=== PATIENT | female | born 1935 | race Caucasian/White ===

== ENCOUNTER 2017-08-17 12:51 | Emergency (ER) | payer MEDICARE, OTHER ==
[2017-08-17 13:19] VITALS: BMI 28.9
[2017-08-17 13:22] VITALS: BP 147/87; PULSE 87; TEMP 98.4; O2SAT 98
--- NOTE | 2017-08-17 14:08 | C.PDOC ---
History Of Present Illness 81 year old female, whose PMHx includes thyroid disease, presents to the ED for evaluation of throat discomfort. Patient states she has been drinking fluids, but has minor discomfort when eating solids. Patient was evaluated by her PMD earlier this week and was prescribed Levaquin, with which she has been poorly compliant. Patient denies fever, chills, difficulty breathing, difficulty swallowing, or change in voice. PMD: Dr. Candace Heath Time Seen by Provider: 08/17/17 13:42 Chief Complaint (Nursing): Shortness Of Breath History Per: Patient History/Exam Limitations: no limitations Onset/Duration Of Symptoms: Days Current Symptoms Are (Timing): Still Present Current Respiratory Medications: See Home Med List Associated Symptoms: denies: Fever, Chills Additional History Per: Patient Past Medical History Reviewed: Historical Data, Nursing Documentation, Vital Signs Vital Signs: Last Vital Signs Temp 98.4 F 08/17/17 13:19 Pulse 87 08/17/17 13:19 Resp 20 08/17/17 14:16 BP 147/87 08/17/17 13:19 Pulse Ox 98 08/17/17 14:08 - Medical History PMH: CHF, Diabetes, HTN Surgical History: Cholecystectomy - [facility] Procedures LAPAROSCOPIC CHOLECYSTECTOMY (06/24/14) LAPAROSCOPIC ROBOTIC ASSISTED PROCEDURE (06/24/14) Family History: States: Unknown Family Hx - Social History Hx Tobacco Use: No Hx Alcohol Use: No Hx Substance Use: No - Immunization History Hx Tetanus Toxoid Vaccination: Yes Hx Influenza Vaccination: Yes Hx Pneumococcal Vaccination: Yes Review Of Systems Constitutional: Negative for: Fever, Chills ENT: Positive for: Other (throat discomfort ) Physical Exam - Physical Exam Appears: Non-toxic, No Acute Distress Skin: Normal Color, Warm, Dry Head: Atraumatic, Normacephalic Eye(s): bilateral: Normal Inspection Oral Mucosa: Moist Throat: Normal, No Erythema, No Exudate, No Other (difficulty swallowing or change in voice ) Neck: Normal ROM, No Midline Cervical Tenderness, No Paracervical Tenderness, Supple Chest: Symmetrical, No Deformity, No Tenderness Cardiovascular: Rhythm Regular, No Murmur Respiratory: Normal Breath Sounds, No Rales, No Rhonchi, No Wheezing Extremity: Normal ROM, Capillary Refill (less than 2 seconds ) Neurological/Psych: Oriented x3, Normal Speech, Normal Cognition ED Course And Treatment O2 Sat by Pulse Oximetry: 98 (on RA) Pulse Ox Interpretation: Normal Medical Decision Making Medical Decision Making: mild sore throat ? compliance with abx for ? reason normal appearing throat. no sig findings on exam. Nursing discussed with PA @ Dr. Candace Heath's office Seen twice this week in office with normal eval and wokup D/c ABX for fear of C-diff with NO s/s of infection Cetacaine sprain for mild throat discomfort. Disposition Doctor Will See Patient In The: Office Counseled Patient/Family Regarding: Studies Performed, Diagnosis - Disposition Referrals: Candace Heath [Staff Provider] - Disposition: HOME/ ROUTINE Disposition Time: 14:08 Condition: GOOD Additional Instructions: CLAUDIO de k[place] los antibioticos- No hay infeccion. [place] Cetacaine [place] para dolor del [place] Sigue con Dra Heath el Lunes chay necessario Prescriptions: Tetracaine/Benzocaine/Butamben [Cetacaine 14%-2%-2%] 1 kit MM 5XD #1 kit Instructions: Sore Throat in Adults Forms: [facility] (Citizen Of [place]) Print Language: AZERI - Clinical Impression Clinical Impression: Throat discomfort - Scribe Statement The provider has reviewed the documentation as recorded by the Scribe (Blanca Goldman) Provider Attestation: All medical record entries made by the Scribe were at my direction and personally dictated by me. I have reviewed the chart and agree that the record accurately reflects my personal performance of the history, physical exam, medical decision making, and the department course for this patient. I have also personally directed, reviewed, and agree with the discharge instructions and disposition.
[2017-08-17 14:18] VITALS: RESP 20
== END 2017-08-17 14:18 | disposition home or self-care (01) ==
LOC: C.ER 12:51
DX: R07.0 Pain in throat (principal); E11.9 Type 2 diabetes mellitus without complications; I50.9 Heart failure, unspecified; I10 Essential (primary) hypertension

== ENCOUNTER 2018-07-22 16:48 | Emergency (ER) | payer MEDICARE ==
[2018-07-22 16:49] VITALS: BMI 28.9
[2018-07-22 17:32] LABS: BASO # 0.1 K/uL (0.0-0.2); BASO % 0.7 % (0.0-2.0); EOS # 0.2 K/uL (0.0-0.7); EOS % 1.6 % (0.0-4.0); HEMOGLOBIN 12.3 g/dL (11.0-16.0); LYMPH # 1.8 K/uL (1.0-4.3); LYMPH % 17.7 % (20.0-40.0); MEAN CORPUSCULAR HEMOGLOBIN 27.1 pg (27.0-31.0); MEAN CORPUSCULAR HGB CONC 31.8 g/dL (33.0-37.0); MEAN PLATELET VOLUME 7.9 fL (7.2-11.7); MONO # 0.6 K/uL (0.0-0.8); MONO % 5.8 % (0.0-10.0); NEUT # 7.5 K/uL (1.8-7.0); NEUT % 74.2 % (50.0-75.0); RBC 4.52 Mil/uL (3.80-5.20); RED CELL DISTRIBUTION WIDTH 14.4 % (11.5-14.5); WHITE BLOOD COUNT 10.1 K/uL (4.8-10.8)
[2018-07-22 17:38] LABS: MEAN CELL VOLUME 85.4 fL (81.0-99.0)
--- NOTE | 2018-07-22 17:38 | C.PDOC ---
History Of Present Illness 82-year-old female, whose past medical history includes hypertension, diabetes and hypothyroidism, presents to the ED for evaluation of shortness of breath which began prior to arrival. Patient was reportedly seen by her PMD today. P atient denies fever, chills, cough. Time Seen by Provider: 07/22/18 17:16 Chief Complaint (Nursing): Shortness Of Breath History Per: Patient History/Exam Limitations: no limitations Onset/Duration Of Symptoms: Hrs Current Symptoms Are (Timing): Still Present Associated Symptoms: denies: Fever, Chills, Chest Pain, Bloody Cough, Productive Cough Past Medical History Reviewed: Historical Data, Nursing Documentation, Vital Signs Vital Signs: Last Vital Signs Temp 98.5 F 07/22/18 17:07 Pulse 121 H 07/22/18 17:07 Resp 18 07/22/18 17:12 BP 176/104 H 07/22/18 17:07 Pulse Ox 98 07/22/18 17:12 Primary Care Provider: Candace Heath - Medical History PMH: CHF, Diabetes, HTN Surgical History: Cholecystectomy - [facility] Procedures LAPAROSCOPIC CHOLECYSTECTOMY (06/24/14) LAPAROSCOPIC ROBOTIC ASSISTED PROCEDURE (06/24/14) Family History: States: Unknown Family Hx - Social History Hx Tobacco Use: No Hx Alcohol Use: No Hx Substance Use: No - Immunization History Hx Tetanus Toxoid Vaccination: Yes Hx Influenza Vaccination: Yes Hx Pneumococcal Vaccination: Yes Review Of Systems Constitutional: Negative for: Fever, Chills Respiratory: Positive for: Shortness of Breath. Negative for: Cough Physical Exam - Physical Exam Appears: Non-toxic, No Acute Distress, Other (anxious appearing ) Skin: Normal Color, Warm, Dry Head: Atraumatic, Normacephalic Eye(s): bilateral: Normal Inspection Oral Mucosa: Moist Neck: Supple Chest: Symmetrical, No Deformity, No Tenderness Cardiovascular: Rhythm Regular, No Murmur Respiratory: Rales (mild, at bilateral bases ), No Rhonchi, No Wheezing Gastrointestinal/Abdominal: Soft, No Tenderness Extremity: Normal ROM, Capillary Refill (less than 2 seconds ) Neurological/Psych: Oriented x3, Normal Speech, Normal Cognition ED Course And Treatment - Laboratory Results Result Diagrams: 07/22/18 17:27 07/22/18 17:27 ECG: Interpreted By Me, Viewed By Me ECG Rhythm: Sinus Rhythm Interpretation Of ECG: Normal Sinus Rhythm at rate 95bpm. No ST/T wave changes. Rate From EC O2 Sat by Pulse Oximetry: 98 (on RA) Pulse Ox Interpretation: Normal Medical Decision Making Medical Decision Making: ro chf pe anxiety Progress: Bloodwork, urinalysis, CXR, EKG ordered and reviewed. labs neg dimer neg. bnp neg. cxr neg. pt sepaking full sentneces in nad. vitals normal. ?undelrying anxiety. Disposition - Disposition Disposition: HOME/ ROUTINE Disposition Time: 19:45 Condition: STABLE Additional Instructions: return to any er with worsening. Instructions: Anxiety, Adult (DC), Shortness of Breath (Dyspnea) (DC) Forms: [employer] (Arabic) - Clinical Impression Clinical Impression: Dyspnea - Scribe Statement The provider has reviewed the documentation as recorded by the Scribe (Blanca Goldman) Provider Attestation: All medical record entries made by the Scribe were at my direction and personally dictated by me. I have reviewed the chart and agree that the record accurately reflects my personal performance of the history, physical exam, medical decision making, and the department course for this patient. I have also personally directed, reviewed, and agree with the discharge instructions and disposition.
[2018-07-22 17:47] LABS: ALB/GLOB RATIO 1.4 (1.0-2.1); ALBUMIN 4.6 g/dL (3.5-5.0); ALT/SGPT 25 U/L (9-52); AST/SGOT 27 U/L (14-36); BLOOD UREA NITROGEN 22 mg/dL (7-17); CALCIUM 9.7 mg/dl (8.6-10.4); GFR NON-AFRICAN AMERICAN > 60
[2018-07-22 17:57] LABS: B-TYPE NATRIURETIC PEPTIDE 306 pg/mL (0-900)
[2018-07-22 18:09] LABS: SQUAMOUS EPITHIAL 1 /hpf (0-5); URINE BACTERIA OCC (<OCC); URINE BILIRUBIN NEGATIVE (NEGATIVE); URINE BLOOD NEGATIVE (NEGATIVE); URINE CLARITY Clear (Clear); URINE COLOR Yellow (YELLOW); URINE GLUCOSE (UA) NORMAL (Normal); URINE LEUKOCYTE ESTERASE TRACE Leu/uL (Negative); URINE PROTEIN NEGATIVE (NEGATIVE)
[2018-07-22 18:53] LABS: INR 1.1; PARTIAL THROMBOPLASTIN TIME 30.3 SECONDS (21-34); PROTHROMBIN TIME 12.5 SECONDS (9.7-12.2)
[2018-07-22 19:37] VITALS: BP 150/71; PULSE 88; RESP 20; TEMP 99.1
[2018-07-22 19:46] VITALS: O2SAT 98
--- NOTE | 2018-07-23 10:37 | RAD ---
Date of service: 07/22/2018 HISTORY: chest pain COMPARISON: 06/21/2014 TECHNIQUE: 1 view obtained. FINDINGS: LUNGS: No active pulmonary disease. PLEURA: No significant pleural effusion identified, no pneumothorax apparent. CARDIOVASCULAR: Aortic atherosclerotic calcification present. Normal cardiac size. No pulmonary vascular congestion. OSSEOUS STRUCTURES: No significant abnormalities. VISUALIZED UPPER ABDOMEN: Normal. OTHER FINDINGS: None. IMPRESSION: No active disease.
== END 2018-07-22 19:36 | disposition home or self-care (01) ==
LOC: C.ER 16:48
DX: R06.00 Dyspnea, unspecified (principal)